=== PATIENT | female | born 1995 | race Asian ===

== ENCOUNTER 2017-01-21 14:15 | Emergency (ER) | payer OTHER ==
[~2017-01-21] VITALS: Ht 157.5 cm; Wt 63.5 kg
[2017-01-21 14:18] VITALS: Ht 157.5 cm; Wt 63.5 kg
[2017-01-21] MEDS ORDERED: BACI500O11 TOP (15:00)
--- NOTE | 2017-01-21 15:01 | EMERGENCY ROOM VISIT NOTE ---
History Report prepared by Jamie: Gely Spain Under the Supervision of: Dr. Emil Robbins M.D. First contact with patient: 14:24 Chief Complaint: HEAD INJURY (MINOR) Stated Complaint: HEAD INJURY History of Present Illness The patient is a 21 year old female who presents to the Emergency Room with complaints of an episode of a fall last night. The patient states that she was chasing someone in high heels last night when she fell and injured her right foot and head. She denies any loss of consciousness, vomiting, and headache. Her friend reports that she was not able to feel anything last night. She notes that she cleaned out the cut last night with alcohol. Source of History: patient Onset: last night Position: other (global) Quality: other (fall) Timing: other (episode) Associated Symptoms: No LOC, No headache, No vomiting Note: Pt notes head injury and foot injury. Review of Systems See HPI for pertinent positives & negatives. A total of 10 systems reviewed and were otherwise negative. Past Medical & Surgical Medical Problems: (1) No Known Active Medical Problems Family History No pertinent family history stated. Social History Smoking Status: Never Smoker Marital Status: single Housing Status: lives with roommate Occupation Status: [employer] student Current/Historical Medications Scheduled Bacitracin (Topical) (Bacitracin), 1 APPLN TOP BID Allergies Coded Allergies: No Known Allergies (Unverified , 01/21/17) Physical Exam Vital Signs Date Time Temp Pulse Resp B/P (MAP) Pulse Ox O2 Delivery O2 Flow Rate FiO2 01/21/17 15:23 92 16 109/75 97 01/21/17 14:18 103 18 115/83 96 Room Air Physical Exam GENERAL: Patient is a healthy-appearing well-nourished female HEAD: 1cm laceration to the back of her head EYES: Ocular movements intact pupils equal and react to light OROPHARYNX mucous membranes are moist no exudates present no erythema or edema present NECK: Supple no nuchal rigidity CHEST: Good equal expansion LUNGS: Clear and equal to auscultation CARDIAC: Normal S1 and S2 ABDOMEN: Soft nontender no guarding BACK: No CVA tenderness EXTREMITIES: Normal muscle strength in all groups no clubbing cyanosis or edema , multiple abrasions bilaterally to the feet NEURO: Patient is following commands and answering questions appropriately. Alert and oriented x3 Cranial Nerves 2-12 grossly intact Medical Decision & Procedures ED Course 1424: Past medical records reviewed. The patient was evaluated in room B5. A complete history and physical examination was performed. 1504: Upon reexamination the patient is doing well. I discussed results and treatment plan with the patient. She verbalizes agreement and understanding. The patient is ready for discharge. Medical Decision Differential diagnosis: Etiologies such as fracture, dislocation, intra-abdominal, pneumothorax, intrathoracic , intracranial, neurologic, as well as other traumatic pathologies were entertained. This is a 21-year-old female who presents emergency department complaining of laceration to the back of her head. The patient did not lose consciousness and at this point does not have any head complaints. Using shared medical decision making with the patient we both felt that a CAT scan of the head would not be of benefit to this patient as she is not having any symptoms. The laceration was cleaned by myself. I do not believe it needs any sutures. The patient was given bacitracin for her laceration as well as the abrasions on her feet. Patient was in agreement with the treatment plan. Medication Reconcilliation Current Medication List: was personally reviewed by me Blood Pressure Screening Patient's blood pressure: Normal blood pressure Blood pressure disposition: Did not require urgent referral Impression Primary Impression: Laceration Scribe Attestation The scribe's documentation has been prepared under my direction and personally reviewed by me in its entirety. I confirm that the note above accurately reflects all work, treatment, procedures, and medical decision making performed by me. Departure Information Dispostion Home / Self-Care Prescriptions Bacitracin (Topical) (BACITRACIN) 500 Unit/Gm Oin 1 APPLN TOP BID for 7 Days, #15 GM Prov: Emil Robbins MD 01/21/17 Referrals No Doctor, Assigned (PCP) Forms HOME CARE DOCUMENTATION FORM, IMPORTANT VISIT INFORMATION Patient Instructions ED Head Injury Closed, ED Laceration All, My [facility] Additional Instructions Follow up with [facility] for continued head pain [phone] You have been examined and treated today on an emergency basis only. This is not a substitute for, or an effort to provide, complete comprehensive medical care. It is impossible to recognize and treat all injuries or illnesses in a single emergency department visit. It is therefore important that you follow up closely with [facility]. Call as soon as possible for an appointment. Thank you for your time and consideration. I look forward to speaking with you again soon. Please don't hesitate to call us if you have any questions.
[2017-01-21 15:23] VITALS: BP 109/75; PULSE 92; O2SAT 97
== END 2017-01-21 15:24 | disposition home or self-care (01) ==
LOC: C.EDB 14:17
DX: S01.91XA Laceration without foreign body of unspecified part of head, initial encounter (principal); W19.XXXA Unspecified fall, initial encounter

== ENCOUNTER 2017-04-23 13:57 | Emergency (ER) | payer OTHER ==
[~2017-04-23] VITALS: Ht 160 cm; Wt 64.0 kg
[2017-04-23 14:01] VITALS: TEMP 37.1; Ht 160 cm; Wt 64.0 kg
[2017-04-23] MEDS ORDERED: ACETAMINOPHEN 500 MG TAB PO STA (14:10)
[2017-04-23] MEDS ORDERED: IBUPROFEN 600 MG TAB PO STA (14:10)
[2017-04-23] MEDS ORDERED: SODIUM CHLORIDE 0.9% 1000ML 1,000 ML IV STA (14:10)
[2017-04-23] MEDS ORDERED: BENZONATATE 100MG CAP PO ONE (14:15)
--- NOTE | 2017-04-23 14:22 | EMERGENCY ROOM VISIT NOTE ---
History Report prepared by Jamie: Gely Spain Under the Supervision of: Dr. Lul Chavis M.D. First contact with patient: 14:06 Chief Complaint: COUGH Stated Complaint: COUGH, HEADACHE, SORE CHEST Nursing Triage Summary: productive cough yellow sputum with PETTY and feeling cold History of Present Illness The patient is a 22 year old female with no past medical history who presents to the ED with a cc of a constant productive cough beginning 1 week ago. Positive headache, sore throat, sore chest at night with some difficulty breathing, yellow sputum, and right ear pain. Negative fever, chills, swelling in the legs, shortness of breath. The patient states that she has not taken anything for her cough. The patient states that she went to [place] recently and the trip was 10 hours. Source of History: patient Onset: 1 week ago Position: other (global) Quality: other (cough) Associated Symptoms: + headache, + sorethroat, + chest pain, No fevers, No chills, No SOB Note: Positive yellow sputum and right ear pain. Negative swelling in the legs. Review of Systems See HPI for pertinent positives and negatives. A total of ten systems were reviewed and were otherwise negative. Past Medical & Surgical Medical Problems: (1) No Known Active Medical Problems Family History No pertinent family history stated. Social History Smoking Status: Current Every Day Smoker Marital Status: single Housing Status: lives with roommate Occupation Status: [employer] student Current/Historical Medications Scheduled Azithromycin (Zithromax), 250 MG PO DAILY Benzonatate (Tessalon Perles), 100 MG PO TID Allergies Coded Allergies: No Known Allergies (Unverified , 04/23/17) Physical Exam Vital Signs Date Time Temp Pulse Resp B/P (MAP) Pulse Ox O2 Delivery O2 Flow Rate FiO2 04/23/17 16:00 96 18 110/87 100 Room Air 04/23/17 15:32 98 04/23/17 15:10 100 Room Air 04/23/17 14:01 37.1 120 16 126/90 98 Physical Exam GENERAL: Awake, alert, well-appearing, NAD HENT: Normocephalic, atraumatic. Oropharyngeal erythema. Right TM is slightly retracted, good reflux, no erythema. Left TM clear. EYES: Normal conjunctiva. Sclera non-icteric. NECK: Supple. No nuchal rigidity. FROM. No stridor. RESPIRATORY: CTAB, no rhonchi, wheezing, crackles CARDIAC: Tachycardic and regular, no MRG ABDOMEN: Soft, NTND, BS+ MSK: No chest wall TTP, no LE edema. No calf pain, negative Mely sign. NEURO: GCS 15, CN 2-12 intact, moves all 4s on command SKIN: No rash or jaundice noted. Medical Decision & Procedures ER Provider Diagnostic Interpretation: X-ray: Per my interpretation, radiologist review. CHEST ONE VIEW PORTABLE FINDINGS: The bones soft tissues and hemidiaphragms are normal. The cardiomediastinal silhouette is normal. The lungs are clear. The pulmonary vasculature is normal. IMPRESSION: Negative chest. The above report was generated using voice recognition software. It may contain grammatical, syntax or spelling errors. Electronically signed by: Darwin Camarillo M.D. 04/23/2017 2:46 PM Dictated Date/Time: 04/23/2017 2:43 PM Laboratory Results 04/23/17 15:00 Red Blood Count 4.69, Mean Corpuscular Volume 90.4, Mean Corpuscular Hemoglobin 31.3, Mean Corpuscular Hemoglobin Concent 34.7, Mean Platelet Volume 10.2 04/23/17 15:00 Test 04/23/17 15:00 04/23/17 15:03 White Blood Count 3.12 K/uL (4.8-10.8) Red Blood Count 4.69 M/uL (4.2-5.4) Hemoglobin 14.7 g/dL (12.0-16.0) Hematocrit 42.4 % (37-47) Mean Corpuscular Volume 90.4 fL (80-100) Mean Corpuscular Hemoglobin 31.3 pg (25-34) Mean Corpuscular Hemoglobin Concent 34.7 g/dl (32-36) Platelet Count 169 K/uL (130-400) Mean Platelet Volume 10.2 fL (7.4-10.4) RDW Standard Deviation 44.2 fL (36.4-46.3) RDW Coefficient of Variation 13.5 % (11.5-14.5) Neutrophils % (Manual) 36.8 % Lymphocytes % (Manual) 41.2 % Monocytes % (Manual) 8.8 % Eosinophils % (Manual) 12.3 % Basophils % (Manual) 0.9 % Neutrophils # (Manual) 1.15 K/uL (1.4-6.5) Total Absolute Neutrophils 1.15 K/uL (1.4-6.5) Lymphocytes # (Manual) 1.29 K/uL (1.2-3.4) Total Absolute Lymphocytes 1.29 K/uL (1.2-3.4) Monocytes # (Manual) 0.27 K/uL (0.11-0.59) Eosinophils # (Manual) 0.38 K/uL (0-0.5) Basophils # (Manual) 0.03 K/uL (0-0.2) Red Blood Cell Morphology Unremarkable Anion Gap 9.0 mmol/L (3-11) Est Creatinine Clear Calc Drug Dose 126.2 ml/min Estimated GFR () 148.9 Estimated GFR (Non- 128.5 BUN/Creatinine Ratio 22.1 (10-20) Calcium Level 8.6 mg/dl (8.5-10.1) Total Bilirubin 0.5 mg/dl (0.2-1) Direct Bilirubin 0.1 mg/dl (0-0.2) Aspartate Amino Transf (AST/SGOT) 14 U/L (15-37) Alanine Aminotransferase (ALT/SGPT) 20 U/L (12-78) Alkaline Phosphatase 51 U/L (45-117) Total Protein 7.1 gm/dl (6.4-8.2) Albumin 3.8 gm/dl (3.4-5.0) Lipase 242 U/L (73-393) Influenza Type A Antigen Neg for Influ A (NEG) Influenza Type B Antigen Neg for Influ B (NEG) Laboratory results reviewed by me Medications Administered Medications (Trade) Dose Ordered Sig/Marcia Route Start Time Stop Time Status Last Admin Dose Admin Sodium Chloride 1,000 ml @ 999 mls/hr Q1H1M STAT IV 04/23/17 14:10 04/23/17 15:10 DC 04/23/17 15:14 999 MLS/HR Acetaminophen (Tylenol Tab) 1,000 mg NOW STAT PO 04/23/17 14:10 04/23/17 14:12 DC 04/23/17 15:15 1,000 MG Ibuprofen (Motrin Tab) 600 mg NOW STAT PO 04/23/17 14:10 04/23/17 14:12 DC 04/23/17 15:15 600 MG Benzonatate (Tessalon Perles Cap) 100 mg NOW ONCE PO 04/23/17 14:15 04/23/17 14:16 DC 04/23/17 15:14 100 MG ECG Indication: other (cough) Rate (beats per minute): 102 Rhythm: sinus tachycardia Findings: other (normal axis, normal intervals, no STS or TWI, isolated T wave in L3) ED Course 1406: The patient was evaluated in room C11. A complete history and physical exam was performed. 1542: I reevaluated and updated the patient. 1601: I reevaluated the patient. Discussed results and discharge instructions: She verbalized understanding and agreement. The patient is ready for discharge. Medical Decision Differential diagnosis: Etiologies such as infections, reactive airway disease, pneumonia, pneumothorax , COPD, CHF, cardiac ischemia, pulmonary embolism, musculoskeletal, gastrointestinal, as well as others were entertained. Patient was seen and evaluated the bedside. Patient is a fairly healthy 22-year -old denies any alcohol tobacco use. Patient states she's had a productive yellow cough for approximately just over week. Patient did have a recent car trip to [place] but without any lower extremity swelling or calf pain. Patient is complaining of some mild shortness of breath at night when she lays down. Patient is not taking any medications or any [id number] treatment. Patient did have blood work that was completed along with a chest x-ray, ekg, and was given fluids and supportive care. Patient's white blood cell count was 3000. Patient's kidney function was unremarkable. Patient had negative flu. Patient strep was also negative. Patient was feeling improved and tachycardia resolved. I believe that given her infectious symptoms and a cough and any hemoptysis is less likely to be PE. Patient is feeling better. Patient was given azithromycin given the chronicity of her cough about 8 days. Patient was told to avoid alcohol and tobacco and to continue adequate fluid hydration as well as supportive care at home. Patient was agreeable to this plan of care. Patient was given strict follow-up, discharge, and return precautions. All questions were answered. Patient was deemed suitable for outpatient follow-up at this time. Patient agreed with the plan of care and was safely discharged home. Medication Reconcilliation Current Medication List: was personally reviewed by me Blood Pressure Screening Patient's blood pressure: Normal blood pressure Blood pressure disposition: Did not require urgent referral Impression Primary Impression: Cough Additional Impression: Acute bronchitis Scribe Attestation The scribe's documentation has been prepared under my direction and personally reviewed by me in its entirety. I confirm that the note above accurately reflects all work, treatment, procedures, and medical decision making performed by me. Departure Information Dispostion Home / Self-Care Prescriptions Benzonatate (TESSALON PERLES) 100 Mg Cap 100 MG PO TID for 7 Days, #21 CAP Prov: Lul Chavis M.D. 04/23/17 Azithromycin (Zithromax) 250 Mg Tab 250 MG PO DAILY, #4 TAB Prov: Lul Chavis M.D. 04/23/17 Referrals No Doctor, Assigned (PCP) [facility] Patient Instructions ED Upper Resp Infec Abx Tx, My [facility] Additional Instructions Please return to the emergency department if you have worsening or recurrent symptoms not amenable to at-home treatment. Please call for a follow-up appointment with her primary care physician. Please take your medications as prescribed. If you have other concerns and/or complaints please feel free to also call your primary care physician's office or return the ED for further evaluation, management, and treatment. You may take 600 mg Ibuprofen every 6 hours as needed for pain with food for no more than 2 consecutive days. You may take tylenol 1000 mg every 6 hours as needed for pain. You may take motrin and tylenol separately or at the same time. Take your medications as prescribed. Consider cough suppressant medicines at the pharmacy. Continue ample fluids and avoid alcohol and tobacco. You have been examined and treated today on an emergency basis only. This is not a substitute for, or an effort to provide, complete comprehensive medical care. It is impossible to recognize and treat all injuries or illnesses in a single emergency department visit. It is therefore important that you follow up closely with [facility], your PCP, and/or your specialist(s). Call as soon as possible for an appointment. Thank you for your time and consideration. I look forward to speaking with you again soon. Please don't hesitate to call us if you have any questions. Problem Qualifiers Additional Impression: Acute bronchitis Bronchitis organism: unspecified organism Qualified Codes: J20.9 - Acute bronchitis, unspecified
--- NOTE | 2017-04-23 14:47 | DIAGNOSTIC IMAGING REPORT ---
CHEST ONE VIEW PORTABLE CLINICAL HISTORY: CHEST PAIN dyspnea COMPARISON STUDY: No previous studies for comparison. FINDINGS: The bones soft tissues and hemidiaphragms are normal. The cardiomediastinal silhouette is normal. The lungs are clear. The pulmonary vasculature is normal. IMPRESSION: Negative chest. The above report was generated using voice recognition software. It may contain grammatical, syntax or spelling errors. Electronically signed by: Darwin Camarillo M.D. 04/23/2017 2:46 PM Dictated Date/Time: 04/23/2017 2:43 PM
[2017-04-23 15:10] VITALS: O2SAT 100
[2017-04-23 16:05] LABS: BUN/CREATININE RATIO 22.1 (10-20); CALCIUM 8.6 mg/dl (8.5-10.1); CREATININE 0.64 mg/dl (0.60-1.20); POTASSIUM 3.8 mmol/L (3.5-5.1)
[2017-04-23 16:19] LABS: HEMATOCRIT 42.4 % (37-47); MEAN CELL VOLUME 90.4 fL (80-100); MEAN CORPUSCULAR HEMOGLOBIN 31.3 pg (25-34); MEAN CORPUSCULAR HGB CONC 34.7 g/dl (32-36); MEAN PLATELET VOLUME 10.2 fL (7.4-10.4); PLATELET COUNT 169 K/uL (130-400); RED BLOOD COUNT 4.69 M/uL (4.2-5.4); WHITE BLOOD COUNT 3.12 K/uL (4.8-10.8)
[2017-04-23 16:20] LABS: BASO ABS # 0.03 K/uL (0-0.2); BASOPHIL % 0.9 %; COMPLETE YES; EOSINOPHIL % 12.3 %; LYMPH ABS # 1.29 K/uL (1.2-3.4); LYMPHOCYTE % 41.2 %; NEUTROPHILS % 36.8 %
[2017-04-23] MEDS ORDERED: BENZ100C18 PO (16:29)
[2017-04-23] MEDS ORDERED: AZIT250T PO (16:29)
[2017-04-23] MEDS ORDERED: AZITHROMYCIN 250 MG TAB PO ONE (16:30)
[2017-04-23 17:15] VITALS: BP 108/87; PULSE 104; O2SAT 99
== END 2017-04-23 17:17 | disposition home or self-care (01) ==
LOC: C.EDB 13:58 → C.EDC 17:17
DX: J20.9 Acute bronchitis, unspecified (principal); R00.0 Tachycardia, unspecified; F17.200 Nicotine dependence, unspecified, uncomplicated; Z79.899 Other long term (current) drug therapy